=== PATIENT | female | born 1985 | race Caucasian/White ===

== ENCOUNTER 2022-11-15 12:16 | Emergency (ER) | payer BC, SELFPAY ==
[2022-11-15 12:30] VITALS: BP 137/78; PULSE 101; RESP 18; TEMP 36.7; O2SAT 97; BMI 35.1
--- NOTE | 2022-11-15 12:35 | ED_ITS ---
HPI - General Adult General Time Seen by Provider: 12:35 Date Seen: 11/15/22 Chief complaint: Vaginal Bleeding Stated complaint: Severe period bleeding/cramping Time Seen by Provider: 11/15/22 12:20 Source: patient and RN notes reviewed Mode of arrival: ambulatory Limitations: no limitations History of Present Illness HPI narrative: This 37-year-old female is coming in with heavy menstrual bleeding, cramping. She had a Mirena IUD taken out on Sunday. With her Mirena IUD, it had been in about 1 year, was placed in [place]. She was pursuing a diagnosis of en dometriosis and requesting hysterectomy. She is subsequently moved from her job in [place] to here. She does have a follow-up with OB [facility]ne through [facility] next week. She has not had any imaging. She is bleeding enough that she has felt lightheaded. She states yesterday she felt a little chest pain as well as the day before. She has had a gastric sleeve before and thus avoids oral NSAIDs. She has not taken anything like Tylenol for her cramping. She is here to be further evaluated. With her Mirena IUD, had initial bleeding and spotting for the 1st few months. While the Mirena IUD was in, did have a monthly light menstrual cycle where was more brown spotting. Related Data Home Medications Medication Instructions Recorded Confirmed fluticasone propionate 50 1 spray intranasal DAILY PRN 11/15/22 11/15/22 mcg/actuation nasal spray,suspension (Children's Flonase Allergy Relief) venlafaxine 37.5 mg 37.5 mg PO BID 11/15/22 11/15/22 capsule,extended release 24 hr Allergies Allergy/AdvReac Type Severity Reaction Status Date / Time NSAIDS (Non-Steroidal AdvReac Verified 11/15/22 12:28 Anti-Inflamma Review of Systems Narrative: As per HPI. PFSH PFSH Social History Smoking Status: Never smoker Non-prescribed substance use: denies use Exam Const: Vital Signs, click to edit/add: Vital Signs - 24 hr 11/15/22 14:40 Pulse Rate [Right Pulse Oximeter] 98 Respiratory Rate 16 Blood Pressure [Ri ght Upper Arm] 130/78 Pulse Oximetry 97 Oxygen Delivery Me thod Room Air This 37-year-old female is alert, interactive, no apparent distress. Sclera clear, symmetrical facial function, speaking in complete sentences. Neck supple, no thyromegaly masses or nodules noted. CV regular rate and rhythm no murmur. Lungs are clear with good air entry, no wheezing or crackles. Abdomen is soft, nontender, nondistended, no organomegaly palpable. Pelvic exam deferred at this point. Patient was ambulatory into the ED of her own accord. Documenting provider has reviewed patient's vital signs: yes Course Course ED Course: We will stab lotion IV, give her some normal saline, did discuss Toradol which she can use IV. She would like this. Will order 15 mg IV Toradol. We will get basic labs including CBC, extremely unlikely to be but will confirm negative hCG status. Did discuss thyroid screening which she would like to pursue. Will also get a pelvic ultrasound to look at architecture of the uterus. Need to ensure no significant anemia from acute blood loss. Likely discharge to home with outpatient follow-up with OB. Reevaluation(s) Time of Reevaluation #1: 14:45 Reevaluation #1: Patient receiving her IV fluids. Toradol has helped some. Reviewed with her her hemoglobin is stable at 12. Still awaiting the over-read of her pelvic ultrasound but the prelim report per senior rd engineer is no significant acute pathology. status is confirmed negative. TSH is still pending at this time. Vital Signs Vital signs: Initial Vital Signs Temperature 98.0 F 11/15/22 12:30 Temperature Source Temporal Artery Scan 11/15/22 12:30 Pulse Rate 101 H 11/15/22 12:30 Respiratory Rate 18 11/15/22 12:30 Blood Pressure 137/78 11/15/22 12:30 Blood Pressure Mean 97 11/15/22 12:30 Blood Pressure Position Sitting 11/15/22 12:30 Pulse Oximetry 97 11/15/22 12:30 Oxygen Delivery Method Room Air 11/15/22 12:30 Vital Signs Temperature 98.0 F 11/15/22 12:30 Pulse Rate 101 H 11/15/22 12:30 Respiratory Rate 18 11/15/22 12:30 Blood Pressure 137/78 11/15/22 12:30 Pulse Oximetry 97 11/15/22 12:30 Oxygen Delivery Method Room Air 11/15/22 12:30 Temperature 98.0 F 11/15/22 12:30 Pulse Rate 98 11/15/22 14:40 Respiratory Rate 16 11/15/22 14:40 Blood Pressure 130/78 11/15/22 14:40 Pulse Oximetry 97 11/15/22 14:40 Oxygen Delivery Method Room Air 11/15/22 14:40 Medical Decision Making Lab Data Lab results reviewed: Yes I reviewed the patient's lab results Labs: Lab Results 11/15/22 11/15/22 Range/Units 13:06 13:10 WBC 7.88 (4.50-11.00) K/uL RBC 4.56 (4.00-5.20) m/uL Hgb 12.0 (12.0-16.0) gm/dL Hct 38.2 (33.0-51.0) % MCV 84 (80-100) fL MCH 26 (26-34) pg MCHC 31 L (32-36) gm/dL RDW Coeff of [place] 14.2 (11.5-15.5) % Plt Count 380 (140-440) K/uL Neut % (Auto) 64.1 (42.0-72.0) % Lymph % (Auto) 30.6 (20-44) % [place] % (Auto) 4.3 (0.0-11.0) % Eos % (Auto) 0.6 (0.0-7.0) % Baso % (Auto) 0.3 (0.0-3.0) % Neut # (Auto) 5.05 (1.7-7.0) K/uL Lymph # (Auto) 2.41 (0.90-2.90) K/uL [place] # (Auto) 0.30 (0.00-0.90) K/UL Eos # (Auto) 0.05 (0.00-0.50) K/uL Baso # (Auto) 0.02 (0.00-0.30) K/uL Abs Immat Gran (auto) 0.01 (0.00-0.30) K/uL Imm/Tot Granulo (auto) 0.1 % Sodium 138 (135-149) mmol/L Potassium 3.6 (3.6-5.1) mmol/L Chloride 102 (96-114) mmol/L Carbon Dioxide 25 (20-32) mmol/L Anion Gap 11 (7-15) mEq/L BUN 10 (5-24) mg/dL Creatinine 0.6 (0.5-1.5) mg/dL Estimated Creat Clear 122.42 Estimated GFR 117 ml/min Glucose 103 (60-115) mg/dL Calcium 8.9 (8.4-10.6) mg/dL Troponin I < 0.01 L (0.01-0.04) ng/mL TSH 2.010 (0.270-4.200) uIU/mL HCG, Qual Negative (Negative) Lab Acknowledgement Test Added Imaging Data US pelvis: Attestation: I have reviewed the pertinent imaging results. Radiologist's impression: Patient: EMMANUEL MOSHER Facility:?[facility] Patient ID:?[id number] Site Patient ID:?[id number]. Site :?[id number] Study:?US Pelvis PELVIS TA & TV-11/15/2022 2:50:41 PM Ordering Physician:?Ned Garrido Final Report: INDICATION: Menometrorrhagia. Recent IUD removal. TECHNIQUE: Ultrasound pelvis transabdominal and transvaginal for better assessment or to better visualize the endometrium. Real-time sonographic images with spectral and color Doppler imaging of the ovaries were obtained. COMPARISON: None. FINDINGS: Uterus: 9.4 x 5.0 x 6.1 cm. Scarring in the anterior aspect of the lower uterine segment from prior section. Heterogeneous myometrium without discrete mass to suggest uterine fibroid. Endometrium: Transvaginal imaging was performed to better evaluate the endometrium. Endometrial thickness measures 7 mm. No sign of endometrial mass. Trace fluid within the endometrial canal. Right ovary 2.8 x 1.8 cm (additional measurement not included). Left ovary 2.9 x 1.2 x 1.6 cm. No ovarian or adnexal masses. Normal blood flow is demonstrated in both ovaries. Cul-de-sac: No significant free fluid. IMPRESSION: 1. Heterogeneous appearance of the myometrium without focal uterine abnormality. 2. Unremarkable sonographic appearance of the ovaries. Dictated by Lay Anand MD @ 11/15/2022 3:15:50 PM (Electronic Signature) ECG Data Attestation: I personally reviewed and interpreted this ECG as follows: (Sinus rhythm, 99 beats per minute. No ischemic change. QT corrected 469 milliseconds.) Prior ECG tracings: not available for review Discharge Plan Discharge Clinical Impression: Menorrhagia Patient Disposition: Home, Self-Care Condition: Stable Instructions: Abnormal (Dysfunctional) Uterine Bleeding (ED), Menorrhagia (ED) Additional Instructions: The bleeding very well may be in reaction to the IUD removal. The thyroid did subsequently come back normal (TSH). Need to take the copy of the ultrasound to your follow-up appointment with OB Gyne next week. Continue to observe symptoms, if bleeding is worsening or you are becoming more symptomatic, please seek re-evaluation. Prescriptions: No Action venlafaxine 37.5 mg capsule,extended release 24hr 37.5 mg PO BID fluticasone propionate [Children's Flonase Allergy Rlf] 50 mcg/actuation spray,suspension 1 spray intranasal DAILY PRN Rx Instructions: administer into each nostril Follow Up/Referrals: Provider,Not a Local [Primary Care Provider] - Stand Alone Forms: [employer] Info Instructions
--- NOTE | 2022-11-15 13:00 | CRLHL7_ITS ---
For Patients: As a result of the Century Cures Act, medical imaging exams and procedure reports are released immediately into your electronic medical record. You may view this report before your referring provider. If you have questions, please contact your health care provider. INDICATION: Menometrorrhagia. Recent IUD removal. TECHNIQUE: Ultrasound pelvis transabdominal and transvaginal for better assessment or to better visualize the endometrium. Real-time sonographic images with spectral and color Doppler imaging of the ovaries were obtained. COMPARISON: None. FINDINGS: Uterus: 9.4 x 5.0 x 6.1 cm. Scarring in the anterior aspect of the lower uterine segment from prior section. Heterogeneous myometrium without discrete mass to suggest uterine fibroid. Endometrium: Transvaginal imaging was performed to better evaluate the endometrium. Endometrial thickness measures 7 mm. No sign of endometrial mass. Trace fluid within the endometrial canal. Right ovary 2.8 x 1.8 cm (additional measurement not included). Left ovary 2.9 x 1.2 x 1.6 cm. No ovarian or adnexal masses. Normal blood flow is demonstrated in both ovaries. Cul-de-sac: No significant free fluid. IMPRESSION: 1. Heterogeneous appearance of the myometrium without focal uterine abnormality. 2. Unremarkable sonographic appearance of the ovaries. Dictated by Lay Anand MD @ 11/15/2022 3:15:50 PM (Electronically Signed)
[2022-11-15 13:26] LABS: Basophils Absolute Auto 0.02 K/uL (0.00-0.30); Basophils Percent Auto 0.3 % (0.0-3.0); Eosinophils Absolute Auto 0.05 K/uL (0.00-0.50); Eosinophils Percent Auto 0.6 % (0.0-7.0); Hematocrit 38.2 % (33.0-51.0); Immature Granulocytes Abs Auto 0.01 K/uL (0.00-0.30); Immature Granulocytes Pct Auto 0.1 %; Lymphocytes Absolute Auto 2.41 K/uL (0.90-2.90); Lymphocytes Percent Auto 30.6 % (20-44); Mean Corpuscular HGB Conc 31 gm/dL (32-36); Mean Corpuscular Hemoglobin 26 pg (26-34); Mean Corpuscular Volume 84 fL (80-100); Monocytes Percent Auto 4.3 % (0.0-11.0); Neutrophils Absolute Auto 5.05 K/uL (1.7-7.0); Neutrophils Percent Auto 64.1 % (42.0-72.0); Platelet Count* 380 K/uL (140-440); RDW Coefficient of Variation % 14.2 % (11.5-15.5); Red Blood Count 4.56 m/uL (4.00-5.20); White Blood Count* 7.88 K/uL (4.50-11.00)
[2022-11-15] MEDS: KETOROLAC 15 MG/ML inj IVP (13:36)
[2022-11-15] MEDS: 0.9 % SODIUM CHLORIDE 1000 ml 1,000 ML IV (13:37)
[2022-11-15 13:42] LABS: Chloride* 102 mmol/L (96-114); Potassium* 3.6 mmol/L (3.6-5.1); Sodium* 138 mmol/L (135-149)
[2022-11-15 13:45] LABS: Anion Gap 11 mEq/L (7-15); Carbon Dioxide* 25 mmol/L (20-32); Creatinine* 0.6 mg/dL (0.5-1.5); Est. Creatinine Clearance* 122.42; Estimated Glomerular Filt Rate 117 ml/min
[2022-11-15 13:46] LABS: Blood Urea Nitrogen* 10 mg/dL (5-24); Calcium* 8.9 mg/dL (8.4-10.6); Glucose* 103 mg/dL (60-115)
[2022-11-15 13:47] LABS: Slide Review Reflex No
[2022-11-15 13:55] LABS: HCG Qualitative Serum* Negative (Negative)
[2022-11-15 14:01] LABS: Troponin I* < 0.01 ng/mL (0.01-0.04)
[2022-11-15 14:40] VITALS: BP 130/78; PULSE 98; RESP 16; O2SAT 97
== END 2022-11-15 15:29 | disposition home or self-care (01) ==
PROVIDERS: Emergency Provider Family Medicine
DX: N92.0 Excessive and frequent menstruation with regular cycle (principal)
CPT/HCPCS: 36415; 76830; 76856; 80048; 84443; 84484; 84703; 85025; 93005; 93976; 94761; 96361; 96374; 99284; 99285; J1885; J7030

== ENCOUNTER 2023-06-12 09:36 | Day surgery (SDC) | payer BC, SELFPAY ==
[2023-06-12] VITALS (18 sets, daily range): BP systolic 92–113; BP diastolic 49–72; PULSE 66–99; RESP 12–18; TEMP 35.6–36.9; O2SAT 94–100; BMI 35.6
--- OUTSIDE RECORDS SUMMARY | 2023-06-12 09:39 | XMS_ITS | Clinical Summary ---
Author Name Unknown Organization [facility] Address [address] [place] [address] Care Team Providers Care Campus Receptionist Name Role Phone Cornelia Larkin PA-C Primary Care Provider Source Comments You are receiving this document as you are listed as the primary care provider,follow-up provider, or the patient has been referred to you for consultation.This is in compliance with the Medicare and[facility] Hospital[facility] EHR Incentive Program,which states Providers who transition their patient to another setting of careor provider of care or refers their patient to another provider of care shouldprovide summary care record for each transition of care or referral. [facility] Allergies Active Allergy Reactions Criticality Noted Date Comments Nsaids Other, see comments 12/04/2018 H/o gastric sleeve Medications Medication Sig Dispensed Refills Start Date End Date Status fluticasone propionate (FLONASE) 50 MCG/ACT nasal solution 1 Swisher by Nasal route. Active venlafaxine (EFFEXORXR) 75 MG 24 hour release capsuleIndications: Anxiety (HRC),Moderate episode of recurrent major depressive disorder (HRC) Take 1 Capsule (75 mg) by mouth daily. 90 Capsule 3 12/01/2022 12/01/2023 Active Active Problems Problem Noted Date Diagnosed Date Attention deficit hyperactiv ity disorder (ADHD), predominantly inattentive type 05/04/2022 Anxiety 05/04/2022 Moderate episode of recurrent major depressive d isorder 05/04/2022 H/O gastric bypass 12/04/2018 Overview: S/p gastric sleeve, lost approximately 110 lbs Depression 12/04/2018 Pre-eclampsia 12/04/2018 Overview: Borderline pre-eclampsia with first Immunizations Name Administration Dates Next Due Flu Vac (3+ yrs) 11/26/2012,10/27/2009 Flu Vac Preserv Free (3+yrs) 12/08/2011,11/24/19 11 Fluzone Qiv Multidose Vial 0 .25 (6-35 Mos) 11/21/2018 Influenza IIV4 (Quadrivalent ) 0.5mL (67125) 11/30/2021,12/05/2019,11/21/2018, 017,11/30/2014,11/03/2013 Pfizer Monovalent 12+ Purple Top 01/10/2021,05/0 02/2020,05/22/2020 Tdap 06/13/2015, 6,10/23/2013, 011 Family History Medical History Relation Name Comments Hyperlipidemia Father Hypertension Father Depression Mother Depression Maternal Grandmother Cancer, Endometrial Other maternal great grandmother Cancer, Bladder Paternal Grandfather Cystic Fibrosis Paternal Grandfather Depression Sister Cancer, Breast Negative Family History Cancer, Colon Negative Family History Diabetes, Type II Negative Family History Stroke Negative Family History Thromboembolic Disease Negative Family History Relation Name Status Comments Father Mother Maternal Grandmother Other Paternal Grandfather Sister Social History Tobacco Use Types Packs/Day Years Used Date Smoking Tobacco: Former Cigarettes 1 9.5 1 03/1995 - 06/2005 Smokeless Tobacco: Former Alcohol Use Standard Drinks/Week Comments Not Currently 0 (1 standard drink = 0.6 oz pur e alcohol) PHQ-2 Answer Date Recorded PHQ-2 Score 5 09/12/2022 Sex and Gender Information Value Date Recorded Sex Assigned at Female 10/13/2020 10:30 AM CDT Gender Identity Female 10/13/2020 10:30 AM CDT Sexual Orientation Not on file Last Filed Vital Signs Vital Sign Reading Time Taken Comments Blood Pressure 101/44 11/10/2022 12:03 PM CDT Pulse 101 11/10/2022 12:03 PM CDT Temperature 36.8 ??C (98.2 ??F) 04/27/2021 9:46 AM CD T pt reported Respiratory Rate - - Oxygen Saturation - - Inhaled Oxygen Concentration - - Weight 101.6 kg (224 lb) 11/10/2022 12:03 PM CDT Height 170.2 cm (5' 7) 04/27/2021 9:46 AM CDT p t reported Body Mass Index 35.08 04/27/2021 9:46 AM CDT Plan of Treatment Health Maintenance Due Date Last Done Comments Hep C Screening (Preventive Services) 1985 HepB (1) 2002 COVID-19 Vaccine ( season) 2022 01/10/2021, 06/12/2020, 05/22/2020 Influenza (#1) 2022 11/30/2021, 11/13, 11/21/2018, Additional history exists Adult Preventive Visit 10/15/2022 10/15/2020, 2018 DTaP/Tdap/Td (5 - Tdap) 06/12/2025 06/13/19 16, 05/20/2015, 10/23/2013, Additional history exists Cervical Cancer Screening 10/15/20252020, 11/12/2016 (Completed) Zoster/Shingles (1 of 2) 2033 HIV Screening (Preventive Services) Completed 01/13/2016 (Completed) HPV Vaccine Aged Out No longer eligi ble based on patient's age to complete this topic HepA Aged Out No longer eligi ble based on patient's age to complete this topic Hib Aged Out No longer eligi ble based on patient's age to complete this topic IPV (Polio) Aged Out No longer eligi ble based on patient's age to complete this topic MCV4 Aged Out No longer eligi ble based on patient's age to complete this topic Pneumococcal Aged Out No longer eligi ble based on patient's age to complete this topic Procedures Procedure Name Priority Date/Time Associated Diagnosis Comments PAP TEST Routine 10/15/2020 1:27 PM CDT Screening for malignant neoplasm of cervix from Last 3 Months or Most Recently Relevant to Health Maintenance Results * PAP Test (10/15/2020 1:27 PM CDT) Case Report Pap ? Case: [id number] ? Authorizing Provider: ??Jennifer Johnson L, DNP, CASING PULLER, ??Collected: ? 10/15/2020 1327 ? PHOTONICS ENGINEER ? Ordering Location: ? [facility] ??Received: ?10/15/2020 1420 ? Practice ? First Screen: ?Naeem, Gisele N, CT (ASCP) ? Specimen: ?Pap Test, Routine, Cervix/Endocervix ? 10/27/2020 7:59 AM [facility] Pap Specimen Adequacy Satisfactory for evaluation, endocervical/reynaga sformation zone component absent. 10/27/2020 7:59 AM [facility] Pap Interpretation Negative for intraepithelial lesion or malignancy (NILM). 10/27/2020 7:59 AM [facility] Pap Disclaimer The Pap test is a screening test designed to aid in the detection of cervical cancer and its precursor lesions. It is not a diagnostic procedure and should not be used as the sole means of detecting cervical cancer. Both false-positive and false-negative results may occur. 10/27/2020 7:59 AM [facility] Gross Description The specimen is received in SurePath fixative and properly labeled. 1 Pap-stained SurePath slide is prepared. 10/27/2020 7:59 AM [facility] Embedded Images 7:59 AM [facility] Other Specimen Type ENTIRE ENDOCERVIX / Unknown 10/15/2020 1:27 PM CDT 10/15/2020 2:20 PM CDT Comment:LMP: No LMP recorded . Jennifer Johnson DNP, CASING PULLER, PHOTONICS ENGINEER LAB PATHOLOG Y Performing Organization Address City/State/[facility] Co de Phone Number [address] [address], [facility] [phone] from Last 3 Months or Most Recently Relevant to Health Maintenance Care Teams Campus Receptionist Relationship Specialty Start Date End Date Cornelia Larkin PA-C [address] [place] [address] PCP - General Physician [place] Alarm Operator 04/06/22
[2023-06-12 10:23] LABS: Ur HCG Qualitative* Negative (Negative)
[2023-06-12 10:24] LABS: Hemoglobin* 12.4 gm/dL (12.0-16.0)
[2023-06-12] MEDS: LACTATED RINGERS 1000 ML 1,000 ML 100 ML IV ×3 (10:30→15:44)
[2023-06-12] MEDS: SODIUM CHLORIDE 0.9 % (FLUSH) 10 ML SYRINGE IVF (10:30)
[2023-06-12 10:54] LABS: Creatinine* 0.6 mg/dL (0.5-1.5); Estimated Glomerular Filt Rate 116 ml/min
--- NOTE | 2023-06-12 11:30 | W.PM.H&PU ---
History & Physical Update History & Physical Update H&P Reviewed and patient assessed: No changes noted H&P Updates: Chelsea is a 38yo seen in preop prior to planned total laparoscopic hysterectomy, bilateral salpingectomy, cystoscopy in proceed as indicated in the setting of abnormal uterine bleeding with suspicion for endometriosis. She is feeling well today, no interval update to her health history. We reviewed her planned surgery in detail. We discussed risks of surgery, including conversion to open if it is not safe to proceed laparoscopically (for which she is at increased risk with 2 prior C-sections and possible endometriosis), bleeding, infection, damage to surrounding structures (bowel, bladder, ureters, blood vessels) and complications of surgery/anesthesia including VTE, heart attack, stroke or . All questions answered. She affirmed her desire to proceed with the above surgery. Preop labs reviewed,Hgb 12.4, Cr 0.6 and negative UPT.
--- NOTE | 2023-06-12 11:53 | P.GYNPRC_ITS ---
Procedure Note Time Seen by Provider: 15:08 Date of procedure: 06/12/23 Will [facility] bill your pro fee for this procedure?: Yes Pre-op diagnosis: Abnormal Uterine Bleeding Dysmenorrhea Endometriosis Post-op diagnosis: Same as above Procedure: Total laparoscopic hysterectomy Bilateral salpingectomy Diagnostic cystoscopy Anesthesia: GETA Complications: None Surgeon: Lc Marrero MD Mammography Technologist: Anita Valerio Estimated blood loss (mL): 150 Urine Output (mL): 350 Pathology: specimen obtained, sent to pathology Condition: stable Disposition: observation Findings: Adhesion between the omentum and anterior abdominal wall Unremarkable uterus bilateral fallopian tubes and ovaries Scattered suspected endometriosis lesions Unremarkable diagnostic cystoscopy Procedure Description: Patient was taken to the operating room with IV running. She received cefazolin in preoperative prophylaxis. She was positioned in dorsal lithotomy position with her legs fully supported in Yellofin stirrups. General anesthesia was administered. She was prepped and draped in the usual sterile fashion. Pelvic exam under anesthesia was performed for the above-noted findings. Speculum was inserted. Cervix visualized and grasped along its anterior lip with a single-tooth tenaculum. Cervix was dilated with Hegar dilators to accommodate the VCare uterine manipulator. A large-sized colpotomizer cup was selected. The tip of the uterine manipulator was inserted through the cervix into the uterine cavity and the balloon was inflated. The speculum was removed. The colpotomy cup was advanced, surrounding the cervix, and the proximal occluder was moved up along the shaft of the VCare and fixed in place. Sahni catheter was placed. Patient's legs were then placed in neutral position. Attention was turned to patient's abdomen. Space between umbilicus and ASIS was shortened, secondary to prior abdominoplasty. The supraumbilical area was infiltrated with a small amount of Marcaine. A 5 mm supraumbilical incision was made with a scalpel and carried down to the underlying layer of fascia with the hemostat. 5 mm camera was placed within the 5 mm Fios Kii trocar, and advanced under direct visualization through the anterior abdominal wall into the peritoneal cavity, while tenting up the anterior abdominal wall. The trocar was removed. The balloon was inflated, holding the port in place. Pneumoperitoneum was achieved. Survey of the abdomen and pelvis revealed the above-noted findings. Trendelenburg position was requested. Anesthesia provided noted slight movement of the patient despite pink pad and chest strap - where we paused and put the OR table back into neutral position. Her chest strap was tightened and neutral positioning was ensured. Upon resumption of Trendelenburg, proper positioning was maintained and reassessed throughout the case. Two additional port sites were created in the bilateral lower quadrants, 2cm superior and medial to the ASIS. On the right, a 5mm incision was made and 5mm port was placed under direct visualization without complication. On the left, a 11mm incision was made and 10mm port was inserted under direct visualization without complication. Attention was first turned to the left fallopian tube, which was divided from the mesosalpinx, using the Ligasure bipolar cautery device, proceeding laterally to medially, and the tube was amputated at the left uterine cornua. This was removed through the port site and sent to pathology. This procedure was repeated on the patient's right side, and the right fallopian tube was also amputated at the cornua and removed from the patient's abdomen. This was also sent to pathology for further analysis. The left round ligament was cauterized and transected with the Ligasure device. The utero-ovarian ligament was cauterized and transected, and the remnants of the right broad ligament were cauterized and transected between these two structures. The bladder flap was created on the patient's left side, moving l aterally to medially. The left uterine artery was serially cauterized and transected with the Ligasure device. Using the colpotomizer cup as a guide, the peritoneum and underlying stroma was dissected off the anticipated site of colpotomy over the posterior vaginal fornix. Attention was then turned to the right side of the uterus, where the right round ligament was cauterized and transected with Ligasure. The right utero-ovarian ligament was cauterized and transected, and the remnants of the right round ligament were cauterized and transected between these two structures. The bladder flap was created on the patient's right side, and dissection was carried laterally to medially, meeting the dissection where it had left off from the patient's right side. The right uterine artery was serially cauterized and transected with the Ligasure device. The bladder reflection was moved well below the colpotomizer cup anteriorly. The vaginal fornix was then entered anteriorly with the [place] lab cautery device, using the colpotomizer cup as a guide. This device was moved along the circumference of the colpotomizer cup, until the uterus and cervix were freed from their attachments to the pelvis. The uterus was pulled into the patient's vagina and removed, sent to pathology. Pneumoperitoneum was released, ports in place. Attention was then turned vaginally, where patient's legs were placed back in lithotomy position. A weighted speculum and raji retractor were utilized to visualize the vaginal cuff. The right and left corners of the cuff were grasped with Nixon clamps. I started with the left vaginal cuff corner, where an interrupted stitch was applied making sure to grasp the uterosacral ligament. This was tied and tagged. An additional interrupted suture was applied me dically. The same process was completed on the right, making sure to grasp the uterosacral ligament for support. The middle of the vaginal cuff was closed with a [id number] suture. Excellent hemostasis was noted. The vaginal cuff was noted to be intact visually and with palpation. The Sahni catheter was removed from the bladder, and the cystoscope was assembled with saline inflow, outflow, and light cord in place. The patient was given IV methylene blue prior to the cystoscopy. Cystoscope was advanced through the urethra into the bladder, and survey of the mucosa revealed a normal appearance. The bladder dome was intact. Bilateral ureteral jets were noted. Cystoscope was removed and Sahni catheter replaced. Patient's legs were again placed in neutral position. Insufflator was reattached to the port and pneumoperitoneum again achieved. Survey of the pelvis revealed oozing along the posterior vaginal cuff, addressed with bipolar and monopolar cautery as needed. The pelvis was copiously irrigated and suction, excellent hemostasis noted. Ector was applied across the vaginal cuff to reinforce hemostasis. The 11 mm Fios Kii port in the left lower quadrant was removed after balloon on the port was deflated. The Shayne-Gomez laparoscopic closure device was inserted through this port. With the help of this device, the fascia was closed with a single suture of 0-Vicryl. Procedure was deemed complete. The balloons of all remaining port sites were deflated, and all ports were removed after pneumoperitoneum was released. The skin of each port site was closed in a subcuticular fashion with 4 0 Monocryl. Surgical glue was applied above this. Patient tolerated procedure well and was taken to recovery area in stable condition. Surgical debrief completed. EBL 150cc, UOP 350cc, specimen includes uterus, cervix, bilateral fallopian tubes.
[2023-06-12] MEDS: CEFAZOLIN 2 GM INJ IVP (12:02)
[2023-06-12] MEDS: BUPIVACAINE 0.25% 30 ML INJECTION ×2 (13:15→14:40)
[2023-06-12] MEDS: METHYLENE BLUE 1 % 10 ml 100 MG INJECTION (13:25)
--- NOTE | 2023-06-12 13:38 | P.NB_ITS ---
Nerve Block Nerve Block Time Seen by Provider: 12:02 Date Seen: 06/12/23 Type of block requested by surgeon for post-operative analgesia: TAP Side: bilateral Time out performed: Yes Verification of patient name: Yes Verification of date of : Yes Site marking: site marked Name of person performing procedure: [place] Continuous monitoring Was continuous monitoring of O2 sat, B/P, sign designer, recorded every 15 minutes?: Yes Procedure Checklist: sterile prep, needles and gloves Ultrasound guided. Images saved: Yes Medications given in 5ml increments after negative aspiration: Marcaine %: 0.25 mL: 30 Needle gauge: 20 and Exparel mL: 10 Patient tolerated procedure well: Yes Additional comments: Needle noted between internal oblique and transversus abdominus. Local spread visualized Block Charges Block Charge (with Pro Fee): TAP Bilateral Use of Ultrasound Machine for Block: Yes- US Guidance/pain block
--- NOTE | 2023-06-12 13:38 | W.ANESCHARGE ---
Anesthesia Charges Start Date/Time Anesthesia Start Date: 06/12/23 Anesthesia Start Time: 11:51 Stop Date/Time Anesthesia Stop Date: 06/12/23 Anesthesia Stop Time: 15:01
--- NOTE | 2023-06-12 15:05 | W.ANESCHARGE ---
Anesthesia Charges Start Date/Time Anesthesia Start Date: 06/12/23 Anesthesia Start Time: 11:51 Stop Date/Time Anesthesia Stop Date: 06/12/23 Anesthesia Stop Time: 15:01
[2023-06-12] MEDS: ACETAMINOPHEN 325 MG TABLET 650 MG PO (16:24)
[2023-06-12] MEDS: OXYCODONE 5 MG TABLET PO ×2 (18:39→22:31)
--- NOTE | 2023-06-12 18:43 | PC.NURSE ---
End of Shift: Patient pleasant and cooperative, A&O. VSS, SpO2 maintained above 90% on RA. Lung sounds CTA. Patient reports pain on abdomen rating from 3-4 out of 10, managed with Tylenol and Oxycodone. Lap sites are open to air and no drainage. Sahni catheter with blue output from dye. Tolerating regular diet, denies nausea.
[2023-06-12] MEDS: KETOROLAC 30 MG/ML inj IVP (20:50)
[2023-06-13 03:00] VITALS: BP 120/70; PULSE 67; RESP 18; TEMP 36.6; O2SAT 95
[2023-06-13] MEDS: OXYCODONE 5 MG TABLET PO ×2 (03:14→08:18)
[2023-06-13] MEDS: KETOROLAC 30 MG/ML inj IVP (03:14)
--- NOTE | 2023-06-13 06:43 | PC.NURSE ---
19-07: pleasant and cooperative. indep in room. rating pain 1-5/10, see eMAR. VSS. lap sites intact. chapa removed, tip intact.
[2023-06-13 06:51] LABS: Hemoglobin* 10.6 gm/dL (12.0-16.0)
--- NOTE | 2023-06-13 07:42 | P.DS_ITS ---
DS: Providers Provider Time Seen by Provider: 07:20 Date Seen: 06/13/23 Primary care physician: Not a Local Provider Attending Physician on discharge: Tabitha Marrero MD SFDC DEVELOPER-Discharge Summary Hospital Course Hospital Course Narrative: Patient is a 38 year old admitted on her 06/12/23 for postoperative care in the setting of total laparoscopic hysterectomy, bilateral salpingectomy and diagnostic cystoscopy for abnormal uterine bleeding and endometriosis. Indication for surgery: AUB, endometriosis with failed medical management. Intraoperative findings were notable for adhesions of the omentum to the anterior abdominal wall and mild endometriosis. She had an uncomplicated surgery. Postoperative course has been uneventful. Vitals have been stable. She has remained afebrile. Today, on postoperative day 1, she reports the pain is well controlled. She has been maintained on a regimen of Tylenol, Toradol and oxycodone as needed. She is unable to take ibuprofen at home due to history of gastric sleeve. She has been able to ambulate Without difficulty. She is tolerating regular diet with out nausea or vomiting. She has not yet passed gas, no bowel movement. Sahni catheter has been removed, and she is voiding without difficulty. Minimal vaginal bleeding. UOP adequate at 1L in the last 8 hours. Hgb 10.8 from 12.4 pre-op. Time Spent with Patient Time attestation: Total time spent providing and/or coordinating discharge services: SFDC DEVELOPER - Exam Physical Exam: Vital signs: Temp Pulse Resp BP Pulse Ox O2 Del Method 97.8 F 67 18 120/70 95 Room Air 06/13/23 03:00 06/13/23 03:00 06/13/23 03:00 06/13/23 03:00 06/13/23 03:00 06/13/23 03:00 Narrative: General: Alert and oriented, no acute distress Psych: Appropriate mood and affect Abdomen: Soft, nondistended. Nontender in the upper quadrant, though there is tenderness in the lower abdomen consistent with postoperative state. No rebound or guarding. Incisions are all intact, no peripheral erythema or ecchymosis. Superficial surgical glue on. Extremities: No calf erythema or tenderness. Strength to hip flexion, knee extension, dorsi and plantar flexion intact in equal bilaterally. SFDC DEVELOPER - DS: Data Data Completed and Pending Labs on day of discharge: Labs from last 24 hours 06/13/23 06/12/23 06/12/23 06:31 Unknown 10:14 Hgb 10.6 L 12.4 Creatinine 0.6 Estimated Creat Clear 121.20 Estimated GFR 116 Urine HCG, Qual Negative Blood Type A Positive Antibody Screen NEGATIVE Procedures Procedures: Procedures Operation Date: 06/12/23 10:45 Actual Procedure Side Surgeon p Total Laparoscopic Hysterectomy, Bilateral Salpingectomy, Diagnostic Cystoscopy Bilateral Tabitha Marrero MD Discharge Plan Discharge Disposition: Home, Self-Care Discharging Surgeon: Tabitha Marrero Follow-Up Appointment: 2 week and 6 week visits at [facility] Prescriptions: New oxycodone 5 mg capsule 5 mg PO Q6H PRN (Reason: pain) Qty: 20 0RF Continued venlafaxine 75 mg capsule,extended release 24hr 75 mg PO DAILY fluticasone propionate [Children's Flonase Allergy Rlf] 50 mcg/actuation sp ray,suspension 1 spray intranasal DAILY PRN Rx Instructions: administer into each nostril Discontinued norethindrone acetate 5 mg tablet 5 mg PO QDAY Qty: 30 3RF Activity Level: Activity as Tolerated Activity Detail: No lifting more than 15 lb Discharge Diet: Regular Patient Instructions: Oxycodone, Rapid Release (By mouth), Laparoscopic Hysterectomy (DC) Additional Instructions: Lifting restrictions: Please do not lift more than 15lbs for 6 weeks Sexual restriction: Pelvic rest for 2 weeks Pain control: Over the counter Acetaminophen 1000 mg by mouth every six hours on a full stomach for pain as needed Oxycodone 5mg every 6 hours as needed for breakthrough pain (20 tablets provided as patient cannot take p.o. NSAIDs) Please call with: - Heavy vaginal bleeding - Increasing or severe abdominal pain - Fevers/chills - Inability to tolerate solid/liquids by mouth, recurrent nausea/vomiting - Incision redness/drainage - Signs or symptoms of a blood clot - calf pain, redness, swelling, chest pain or shortness of breath Forms: Work/School Release Follow-up: Tabitha Marrero MD [Staff Physician] - 06/27/23 8:45 am ([facility] for 2 wk follow up July 25 at 08:45 AM - [facility] and [facility] for 6 wk follow up.) Provider,Not a Local [Primary Care Provider] - Discharge Orders: Discharge Order (Routine); Ordered 06/13/23 Ordered By: Tabitha Marrero Discharge Potential: Good
[2023-06-13 07:50] VITALS: BP 126/79; PULSE 72; RESP 16; TEMP 36.2; O2SAT 99
[2023-06-13] MEDS: ACETAMINOPHEN 325 MG TABLET 650 MG PO (08:18)
--- NOTE | 2023-06-13 09:46 | PC.NURSE ---
discharge. pt has been very pleasant. pt is alert x4., pain abd is 4-10 she got po pain meds with relief. managed with Tylenol and Oxycodone. Lap sites are open to air and no drainage. Kaitlyn was d/c this am. Tolerating regular diet, denies nausea. went over discharge packet. went over medications, appointments and instruction and education, pt went over and signed personal belonging sheet., was here with coffee. pt SL was d/c intact. she got a w/c ride to car. with all belongs and paperwork
== END 2023-06-13 09:40 | disposition home or self-care (01) ==
LOC: OR 09:37 → MEDSURG 09:40
PROVIDERS: Visit Provider Obstetrics & Gynecology
PROC: 0UT94ZZ Resection of Uterus, Percutaneous Endoscopic Approach (ICD-10-PCS; CPT 58571; principal; 2023-06-12 10:45)
DX: N93.8 Other specified abnormal uterine and vaginal bleeding (principal); N94.6 Dysmenorrhea, unspecified; N80.9 Endometriosis, unspecified; K66.0 Peritoneal adhesions (postprocedural) (postinfection); G89.18 Other acute postprocedural pain
CPT/HCPCS: 58571; 00840; 36415; 64488; 76942; 81025; 82565; 85018; 86850; 86900; 86901; 88307; A9270; C9290; J0665; J0690; J1100; J1200; J1630; J1885; J2250; J2371; J2405; J2704; J2710; J3010; J3490; J7120

== ENCOUNTER 2023-09-14 13:54 | Outpatient (CLI) | payer BC, SELFPAY ==
--- OUTSIDE RECORDS SUMMARY | 2023-09-14 13:56 | XMS_ITS | Clinical Summary ---
Author Organization [facility] Address [address], [place] [address] Care Team Providers Care Zoo Veterinarian Name Role Phone Cornelia Larkin PA-C Primary Care Provider [phone] Source Comments You are receiving this document as you are listed as the primary care provider,follow-up provider, or the patient has been referred to you for consultation.This is in compliance with the Medicare and[facility] EHR Incentive Program,which states Providers who transition their patient to another setting of careor provider of care or refers their patient to another provider of care shouldprovide summary care record for each transition of care or referral. [facility] [employer] Allergies Active Allergy Reactions Criticality Noted Date Comments Nsaids Other, see comments 12/04/2018 H/o gastric sleeve Medications Medication Sig Dispensed Refills Start Date End Date Status fluticasone propionate (FLONASE) 50 MCG/ACT nasal solution 1 [place] by Nasal route. Active venlafaxine (EFFEXORXR) 75 [...] Mos) 11/21/2018 Influenza IIV4 (Quadrivalent ) 0.5mL (75335) 11/30/2021,12/05/2019,11/21/2018, 017,11/30/2014,11/03/2013 Pfizer Monovalent 12+ Purple Top [...] Comments Hep C Screening (Preventive Services) 1983 Mammogram 1983 HepB (1) 2002 COVID-19 Vaccine ( season) 2022 01/10/2021, 06/12/2020, 05/22/2020 Adult Preventive Visit 10/15/2022 10/15/2020, 2018 Influenza (#1) 2023 11/30/2021, 11/13, 11/21/2018, Additional history exists DTaP/Tdap/Td (5 - Tdap) 06/12/2025 06/13/19 16, [...] PM CDT) Case Report Pap ? Case: [id number] ? Authorizing Provider: ??Kirke, Jennifer L, DNP, SANITATION TRUCK CLEANER, ??Collected: ? 10/15/2020 1327 ? BAKED AND GRAPHITE INSPECTOR ? Ordering Location: ? [facility] ??Received: ?10/15/2020 1420 ? Practice ? First Screen: ?Naeem, Gisele N, CT (ASCP) ? Specimen: ?Pap Test, Routine, Cervix/Endocervix ? 10/27/2020 7:59 AM [facility] Pap Specimen Adequacy Satisfactory for evaluation, endocervical/reynaga sformation zone component absent. 10/27/2020 7:59 AM [facility] Pap Interpretation Negative for intraepithelial lesion or malignancy (NILM). 10/27/2020 7:59 AM [facility] Pap Disclaimer The Pap test is a screening test designed to aid in the detection of cervical cancer and its precursor lesions. It is not a diagnostic procedure and should not be used as the sole means of detecting cervical cancer. Both false-positive and false-negative results may occur. 10/27/2020 7:59 AM [facility] Gross Description The specimen is received in SurePath fixative and properly labeled. 1 Pap-stained SurePath slide is prepared. 10/27/2020 7:59 AM [facility] Embedded Images 7:59 AM [facility] Other Specimen Type ENTIRE ENDOCERVIX / Unknown 10/15/2020 1:27 PM CDT 10/15/2020 2:20 PM CDT Comment:LMP: No LMP recorded . Jennifer Johnson DNP, SANITATION TRUCK CLEANER, BAKED AND GRAPHITE INSPECTOR LAB PATHOLOG Y Performing Organization Address City/State/[facility] Co de Phone Number [address] [address], [facility] [phone] from Last 3 Months or Most Recently Relevant to Health Maintenance Care Teams Zoo Veterinarian Relationship Specialty Start Date End Date Cornelia Larkin PA-C [address] [place] [address] PCP - General Physician Supervisor [employer] 04/06/22
== END 2023-09-14 13:55 | disposition home or self-care (01) ==
PROVIDERS: Visit Provider Obstetrics & Gynecology
DX: R61 Generalized hyperhidrosis (principal); N89.8 Other specified noninflammatory disorders of vagina
CPT/HCPCS: 82670; 83001; 84443

== ENCOUNTER 2024-07-08 18:51 | Emergency (ER) | payer BC, SELFPAY ==
[2024-07-08] VITALS (15 sets, daily range): BP systolic 108–137; BP diastolic 73–84; PULSE 72–95; RESP 4–19; TEMP 36.5; O2SAT 96–100; BMI 36.0
--- OUTSIDE RECORDS SUMMARY | 2024-07-08 18:53 | XMS_ITS | Clinical Summary ---
Author Organization [facility] Address [address] [address] Care Team Providers Care Network Support Analyst Name Role Phone Hugh Gracia MD Primary Care Provider [phone] Source Comments You are receiving this document as you are listed as the primary care provider,follow-up provider, or the patient has been referred to you for consultation.This is in compliance with the Medicare andWhite Hospital[employer]id EHR Incentive Program,which states Providers who transition their patient to another setting of careor provider of care or refers their patient to another provider of care shouldprovide summary care record for each transition of care or referral. [facility] Allergies Active Allergy Reactions Criticality Noted Date Comments Nsaids Other, see comments 12/04/2018 H/o gastric sleeve Medications fluticasone propionate (FLONASE) 50 MCG/ACT nasal solution 1 Lynn by Nasal route. Active venlafaxine (EFFEXORXR) 150 MG 24 hour release capsuleIndicati ons:Moderate episode of recurrent major depressive disorder (HRC),Anxiety (HRC) Take 1 Capsule (150 mg) by mouth daily. 90 Capsule 3 12/18/2023 5 Active Active Problems Problem Noted Date Diagnosed Date Attention deficit hyperactiv ity disorder (ADHD), predominantly inattentive type 05/04/2022 Anxiety 05/04/2022 H/O gastric sleeve 12/04/2018 Overview (12/04/2018): S/p gastric sleeve, lost approximately 110 lbs Depression 12/04/2018 Pre-eclampsia 12/04/2018 Overview (12/04/2018): Borderline pre-eclampsia with first Encounters Date Type Department Care Team Description 04/21/2024 Results Follow-Up Endoscopy at [facility] [place] [address] [place] [address]. [place] [address] Robin Johnson MD from Last 3 Months Immunizations Immunization Administration Dates Next Due Flu Vac (3+ yrs) 11/26/2012,10/27/2009 Flu Vac Preserv Free (3+yrs) 12/08/2011,11/24/19 11 Fluzone Qiv Multidose Vial 0 .25 (6-35 Mos) 11/21/2018 Influenza (Flucelvax), Prese rv Free QIV 01/01/2023 Influenza IIV4 (Quadrivalent ) 0.5mL (29411) 11/30/2021,12/05/2019,11/21/2018,2016,11/30/2014,11/03/2013 Moderna COVID-19 12+ 01/01/2023 Pfizer Monovalent 12+ Purple Top 01/10/2021,05/0 02/2020,05/22/2020 Pfizer Monovalent 6m-4 Yrs 01/10/2021,06/12/2020 ,05/22/2020 Tdap 06/13/2015, 6,10/23/2013,2010 Family History Medical History Relation Name Comments [...] Smoking Tobacco: Former Cigarettes 1 9.5 1 03/15/1995 - 06/2005 Smokeless Tobacco: Former Tobacco Cessation:Counseling Given: Not Answered Alcohol Use Standard Drinks/Week Comments Not Currently 0 (1 standard drink = 0.6 oz pur e alcohol) PHQ-2 Answer Date Recorded PHQ-2 Score 3 04/02/2024 Comments No Sex and Gender Information Value Date Recorded Sex Assigned at Female 10/13/2020 10:30 AM CDT Legal Sex Female 9:36 AM CDT Gender Identity Female 10/13/2020 10:30 AM CDT Sexual Orientation Not on file Last Filed Vital Signs Vital Sign Reading Time Taken Comments Blood Pressure 108/59 04/07/2024 3:35 PM EXTERNAL AUDITOR Pulse 79 04/07/2024 3:35 PM EXTERNAL AUDITOR Temperature 36.8 C (98.2 F) 04/27/2021 9:46 AM CDT pt reported Respiratory Rate 16 04/07/2024 3:35 PM EXTERNAL AUDITOR Oxygen Saturation 97% 04/07/2024 3:35 PM EXTERNAL AUDITOR Inhaled Oxygen Concentration - - Weight 95.3 kg (210 lb) 04/07/2024 2:28 PM EXTERNAL AUDITOR Height 170.2 cm (5' 7) 04/07/2024 2:28 PM EXTERNAL AUDITOR Body Mass Index 32.89 04/07/2024 2:28 PM EXTERNAL AUDITOR Plan of Treatment Health Maintenance Due Date Last Done Comments Diabetes Screening- (based on age and BMI) 1985 Hep C Screening (Preventive Services) 1985 Mammogram 1985 HepB Vaccine (1) 2002 Adult Preventive Visit 10/15/2022 10/15/2020, 2018 COVID-19 Vaccine ( season) 2023 01/01/2023, 01/10/2021, 01/10/2021, Additional history exists Influenza Vaccine (Season Ended) 2024 01/01/2023, 11/30/2021, 12/05/2019, Additional history exists DTaP/Tdap/Td Vaccine (5 - Tdap) 06/12/2025 06/13/2015, 05/20/2015, 10/23/2013, Additional history exists Cervical Cancer Screening 10/15/20252020, 10/15/2020, 11/12/2016 (Completed), Additional history exists Zoster/Shingles Vaccine (1 of 2) 2033 Colonoscopy 04/07/2034 04/07/2024 HIV Screening (Preventive Services) Completed 01/13/2016 (Completed) HPV Vaccine Aged Out No longer eligi ble based on patient's age to complete this topic HepA Vaccine Aged Out No longer eligi ble based on patient's age to complete this topic Hib Vaccine Aged Out No longer eligi ble based on patient's age to complete this topic IPV (Polio) Vaccine Aged Out No longe r eligible based on patient's age to complete this topic MCV4 Vaccine Aged Out No longer eligi ble based on patient's age to complete this topic Meningococcal B Vaccine Aged Out No l onger eligible based on patient's age to complete this topic Pneumococcal Vaccine Aged Out No long er eligible based on patient's age to complete this topic Procedures Procedure Name Priority Date/Time Associated Diagnosis Comments COLONOSCOPY DIAGNOSTIC Routine 04/07/2024 2:34 PM EXTERNAL AUDITOR Chronic abdominal pain CYTOLOGY (PAP) Routine 10/15/2020 1:27 PM CDT Screening for malignant neoplasm of cervix from Last 3 Months or Most Recently Relevant to Health Maintenance Results * Colonoscopy Diagnostic (04/07/2024 2:34 PM EXTERNAL AUDITOR) Anatomical Region Laterality Modality Other 04/07/2024 2:34 PM EXTERNAL AUDITOR Narrative 04/07/2024 2:34 PM EXTERNAL AUDITOR Patient Name: Tamar Ambrosio Procedure Date: 04/07/2024 2:34 PM Date of : 1985 Admit Type: Outpatient Age: 39 Note Status: Finalized Attending MD: Robin Johnson MD, Procedure: Colonoscopy Indications: Abdominal pain, Chronic diarrhea Providers: Robin Johnson MD, Shelia Jarquin RN Referring MD: Gisele Marte Medicines: Midazolam 5 mg IV, Fentanyl 150 micrograms IV Complications: No immediate complications. Procedure: Pre-Anesthesia Assessment: - The risks and benefits of the procedure and the sedation options and risks were discussed with the patient. All questions were answered and informed consent was obtained. After I obtained informed consent, the scope was passed under direct vision. Throughout the procedure, the patient's blood pressure, pulse, and oxygen saturations were monitored continuously. The [id number] was introduced through the anus and advanced to the terminal ileum, with identification of the appendiceal orifice and IC valve. The colonoscopy was performed without difficulty. The patient tolerated the procedure well. The quality of the bowel preparation was excellent. Findings: A 3 mm polyp was found in the transverse colon. The polyp was sessile. The polyp was removed with a cold snare. Resection and retrieval were complete. The exam was otherwise without abnormality on direct and retroflexion views. Perhaps some mild erythema in the rectosigmoid colon. The terminal ileum appeared normal. Biopsies for histology were taken with a cold forceps from the rectosigmoid colon for evaluation of microscopic colitis. Moderate Sedation: Moderate (conscious) sedation was administered by the nurse and supervised by the endoscopist. The following parameters were monitored: oxygen saturation, heart rate, blood pressure, and response to care. Total physician intraservice time was 18 minutes. This time is the duration from the initial medication administration until the marine service operator assists with initial maneuvers (biopsy / polypectomy / etc.), or if no maneuvers are performed, until the endoscopist leaves the room. Impression: - One 3 mm polyp in the transverse colon, removed with a cold snare. Resected and retrieved. - The examination was otherwise normal on direct and retroflexion views. - The examined portion of the ileum was normal. - Biopsies were taken with a cold forceps from the rectosigmoid colon for evaluation of microscopic colitis. Recommendation: - Await pathology results. - Repeat colonoscopy in 5-10 years for surveillance based on pathology results. Procedure Code(s): --- Professional --- 43285, Colonoscopy, flexible; with removal of tumor(s), polyp(s), or other lesion(s) by snare technique 50798, 59, Colonoscopy, flexible; with biopsy, single or multiple G0500, Moderate sedation services provided by the same physician or other qualified health live in caregiver performing a gastrointestinal endoscopic service that sedation supports, requiring the presence of an independent trained observer to assist in the monitoring of the patient's level of consciousness and physiological status; initial 15 minutes of intra-service time; patient age 5 years or older (additional time may be reported with 49788, as appropriate) Diagnosis Code(s): --- Professional --- D12.3, Benign neoplasm of transverse colon (hepatic flexure or splenic flexure) R10.9, Unspecified abdominal pain K52.9, Noninfective gastroenteritis and colitis, unspecified CPT copyright 2022 [employer]. All rights reserved. The codes documented in this report are preliminary and upon floor layer helper review may be revised to meet current compliance requirements. Robin Johnson MD 04/07/2024 3:19:20 PM Number of Addenda: 0 Note Initiated On: 04/07/2024 2:34 PM Endoscopy Report Procedure Note Robin Johnson MD - 04/07/2024 Patient Name: Tamar Ambrosio Procedure Date: 04/07/2024 2:34 PM Date of : 1985 Admit Type: Outpatient Age: 39 Note Status: Finalized Attending MD: Robin Johnson MD, Procedure: Colonoscopy Indications: Abdominal pain, Chronic diarrhea Providers: Robin Johnson MD, Shelia Jarquin, [place] Referring MD: Gisele Marte Medicines: Midazolam 5 mg IV, Fentanyl 150 micrograms IV Complications: No immediate complications. Procedure: Pre-Anesthesia Assessment: - The risks and benefits of the procedure and the sedation options and risks were discussed with the patient. All questions were answered and informed consent was obtained. After I obtained informed consent, the scope was passed under direct vision. Throughout the procedure, the patient's blood pressure, pulse, and oxygen saturations were monitored continuously. The [id number] was introduced through the anus and advanced to the terminal ileum, with identification of the appendiceal orifice and IC valve. The colonoscopy was performed without difficulty. The patient tolerated the procedure well. The quality of the bowel preparation was excellent. Findings: A 3 mm polyp was found in the transverse colon. The polyp was sessile. The polyp was removed with a cold snare. Resection and retrieval were complete. The exam was otherwise without abnormality on direct and retroflexion views. Perhaps some mild erythema in the rectosigmoid colon. The terminal ileum appeared normal. Biopsies for histology were taken with a cold forceps from the rectosigmoid colon for evaluation of microscopic colitis. Moderate Sedation: Moderate (conscious) sedation was administered by the nurse and supervised by the endoscopist. The following parameters were monitored: oxygen saturation, heart rate, blood pressure, and response to care. Total physician intraservice time was 18 minutes. This time is the duration from the initial medication administration until the marine service operator assists with initial maneuvers (biopsy / polypectomy / etc.), or if no maneuvers are performed, until the endoscopist leaves the room. Impression: - One 3 mm polyp in the transverse colon, removed with a cold snare. Resected and retrieved. - The examination was otherwise normal on direct and retroflexion views. - The examined portion of the ileum was normal. - Biopsies were taken with a cold forceps from the rectosigmoid colon for evaluation of microscopic colitis. Recommendation: - Await pathology results. - Repeat colonoscopy in 5-10 years for surveillance based on pathology results. Procedure Code(s): --- Professional --- 73710, Colonoscopy, flexible; with removal of tumor(s), polyp(s), or other lesion(s) by snare technique 05510, 59, Colonoscopy, flexible; with biopsy, single or multiple G0500, Moderate sedation services provided by the same physician or other qualified health live in caregiver performing a gastrointestinal endoscopic service that sedation supports, requiring the presence of an independent trained observer to assist in the monitoring of the patient's level of consciousness and physiological status; initial 15 minutes of intra-service time; patient age 5 years or older (additional time may be reported with 02626, as appropriate) Diagnosis Code(s): --- Professional --- D12.3, Benign neoplasm of transverse colon (hepatic flexure or splenic flexure) R10.9, Unspecified abdominal pain K52.9, Noninfective gastroenteritis and colitis, unspecified CPT copyright 2022 [employer]. All rights reserved. The codes documented in this report are preliminary and upon floor layer helper review may be revised to meet current compliance requirements. Robin Johnson MD 04/07/2024 3:19:20 PM Number of Addenda: 0 Note Initiated On: 04/07/2024 2:34 PM Endoscopy Report us Gisele Marte PA-C ET GI PROCEDURE ORDERABLES F inal Result * PAP Test (10/15/2020 1:27 PM CDT) Case Report Pap Case: [id number] Authorizing Provider: Jennifer Johnson, MIREILLE, CURTAIN WORKER, Collected: 10/15/2020 1327 MORPHOLOGY TEACHER Ordering Location: [facility] Received: 10/15/2020 1420 Practice First Screen: Gisele Hartley CT (ASCP) Specimen: Pap Test, Routine, Cervix/Endocervix 10/27/2020 7:59 AM [facility] Pap Specimen Adequacy Satisfactory for evaluation, endocervical/reynaga sformation zone component absent. 10/27/2020 7:59 AM [facility] Pap Interpretation Negative for intraepithelial lesion or malignancy (NILM). 10/27/2020 7:59 AM [facility] at 0759 CDT Pap Disclaimer The Pap test is a screening test designed to aid in the detection of cervical cancer and its precursor lesions. It is not a diagnostic procedure and should not be used as the sole means of detecting cervical cancer. Both false-positive and false-negative results may occur. 10/27/2020 7:59 AM [facility] Gross Description The specimen is received in SurePath fixative and properly labeled. 1 Pap-stained SurePath slide is prepared. 10/27/2020 7:59 AM [facility] Embedded Images 7:59 AM [facility] Other Specimen Type ENTIRE ENDOCERVIX / Unknown 10/15/2020 1:27 PM CDT 10/15/2020 2:20 PM CDT Comment:LMP: No LMP recorded . us Jennifer Johnson DNP, CURTAIN WORKER, MORPHOLOGY TEACHER LAB PATHOLOGY [place] vail Result Performing Organization Address [facility] de Phone Number [address] [phone] from Last 3 Months or Most Recently Relevant to Health Maintenance Insurance [facility] Care Teams Network Support Analyst Relationship Specialty [place] [address] [place] [address] PCP - General 04/14/24
--- OUTSIDE RECORDS SUMMARY | 2024-07-08 18:53 | XMS_ITS | Encounter Summary ---
Author Organization [facility] Address [address] [place] [address] Care Team Providers Care Third Helper Name Role Phone Hugh Gracia MD Primary Care Provider [phone] Reason for Referral * Procedure/Equipment (Routine) - New Request Specialty Diagnoses / Procedures Referred By Connie choi Referred To Contact Diagnoses Chronic abdominal pain Procedures Colonoscopy Diagnostic Gisele Marte PA-C [address] [place] [address] Phone: tel: fax: Referral ID Status Reason Start Date Expiration Date V isits Requested Visits Authorized [id number] New Request 06/01/2024 04/03/2026 1 1 WORKER HEAD Encounter Details Date Type Department Care Team (Late st Contact Info) Description 04/03/2024 Results Follow-Up [facility] [address] [place] [id number] Marizol Mercado PA-C [address] [place] [address] Social History Tobacco Use Types Packs/Day Years Used Date Smoking Tobacco: Former Cigarettes 1 9.5 1 03/15/1995 - 06/2005 Smokeless Tobacco: Former Alcohol Use [...] AM CDT Sexual Orientation Not on file documented as of this encounter Plan of Treatment Not on file documented as of this encounter Results * Colonoscopy Diagnostic (04/07/2024 2:34 PM LOFT WORKER HEAD) Anatomical Region Laterality Modality Other 04/07/2024 2:34 PM LOFT WORKER HEAD Narrative 04/07/2024 2:34 PM LOFT WORKER HEAD Patient Name: Tamar Ambrosio Procedure Date: 04/07/2024 [...] and oxygen saturations were monitored continuously. The [id number] was introduced through the anus and advanced [...] from the initial medication administration until the ict trainer assists with initial maneuvers (biopsy / polypectomy [...] pathology results. Procedure Code(s): --- Professional --- 86466, Colonoscopy, flexible; with removal of tumor(s), polyp(s), or other lesion(s) by snare technique 55878, 59, Colonoscopy, flexible; with biopsy, single or multiple G0500, Moderate sedation services provided by the same physician or other qualified health health care sanitary technician performing a gastrointestinal endoscopic service that sedation supports, requiring the presence of an independent trained observer to assist in the monitoring of the patient's level of consciousness and physiological status; initial 15 minutes of intra-service time; patient age 5 years or older (additional time may be reported with 98361, as appropriate) Diagnosis Code(s): --- Professional --- D12.3, Benign neoplasm of transverse colon (hepatic flexure or splenic flexure) R10.9, Unspecified abdominal pain K52.9, Noninfective gastroenteritis and colitis, unspecified CPT copyright 3 [employer]. All rights reserved. The codes documented in this report are preliminary and upon marine tower operator review may be revised to meet current [...] and oxygen saturations were monitored continuously. The [id number] was introduced through the anus and advanced [...] from the initial medication administration until the ict trainer assists with initial maneuvers (biopsy / polypectomy [...] pathology results. Procedure Code(s): --- Professional --- 74937, Colonoscopy, flexible; with removal of tumor(s), polyp(s), or other lesion(s) by snare technique 67059, 59, Colonoscopy, flexible; with biopsy, single or multiple G0500, Moderate sedation services provided by the same physician or other qualified health health care sanitary technician performing a gastrointestinal endoscopic service that sedation supports, requiring the presence of an independent trained observer to assist in the monitoring of the patient's level of consciousness and physiological status; initial 15 minutes of intra-service time; patient age 5 years or older (additional time may be reported with 81508, as appropriate) Diagnosis Code(s): --- Professional --- D12.3, Benign neoplasm of transverse colon (hepatic flexure or splenic flexure) R10.9, Unspecified abdominal pain K52.9, Noninfective gastroenteritis and colitis, unspecified CPT copyright 2022 [employer]. All rights reserved. The codes documented in this report are preliminary and upon marine tower operator review may be revised to meet current compliance requirements. Robin Johnson MD 04/07/2024 3:19:20 PM Number of Addenda: 0 Note Initiated On: 04/07/2024 2:34 PM Endoscopy Report Gisele Marte PA-C ET GI PROCEDURE ORDERABLES F inal Result documented in this encounter Visit Diagnoses Diagnosis Chronic abdominal pain- Primary Abdominal pain, unspecified site Chronic abdominal pain Abdominal pain, unspecified site documented in this encounter Care Teams Third Helper Relationship Specialty [place] [address] [place] [address] PCP - General 04/14/24 documented as of this encounter
--- OUTSIDE RECORDS SUMMARY | 2024-07-08 18:53 | XMS_ITS | Encounter Summary ---
Author Organization [facility] Address [address] [address] Care Team Providers Care Junior Account Manager Name Role Phone Hugh Gracia MD Primary Care Provider [phone] Encounter Details Date Type Department Care Team (Late st Contact Info) Description 04/21/2024 Results Follow-Up Endoscopy at [facility] at [address] [place], [place] [address] Robin Johnson MD [address] [place] [id number] Social History Tobacco Use Types Packs/Day Years [...] on file documented as of this encounter Visit Diagnoses Not on filedocumented in this encounter Care Teams Junior Account Manager Relationship Specialty [place] [address] [place] [address] PCP - General 04/14/24 documented as of this encounter
--- OUTSIDE RECORDS SUMMARY | 2024-07-08 18:54 | XMS_ITS | Clinical Summary ---
Author Organization [place] Address [address] [place] [id number] Care Team Providers Care Police Officer Name Role Phone No Ref-Primary, Physician Primary Care Provider Allergies Active Allergy Reactions Criticality Noted Date Comments Nsaids Other (See Comments) 12/04/2018 H/o gastric sleeve Medications sertraline (ZOLOFT) 100 MG tablet Take 0.5 tablets by mouth every other day 01/19/2020 Active oxyCODONE-aceta minophen (PERCOCET) 5-325 MG tablet TAKE 1 TO 2 TABLETS BY MOUTH EVERY 4 TO 6 HOURS NEEDED FOR PAIN. MAX 6 TABLETS PER DAY 05/11/2021 Active cyclobenzaprine (FLEXERIL) 5 MG tablet TAKE 1 TO 2 TABLETS BY MOUTH EVERY 8 HOURS NEEDED 05/11/2021 Active cephALEXin (KEFLEX) 500 MG capsule TAKE 1 CAPSULE BY MOUTH THREE TIMES DAILY FOR 7 DAYS 05/11/2021 Active amoxicillin-cla vulanate (AUGMENTIN) 875-125 MG tablet TAKE 1 TABLET BY MOUTH TWICE DAILY FOR 7 DAYS 03/24/2021 Active Active Problems No known active problems Immunizations Immunization Administration Dates Next Due COVID-19 MONOVALENT 12+ (Pfizer) 01/10/2021,05/0 02/2020,05/22/2020 Influenza Vaccine >6 months,quad, PF 12/05/2019, 11/21/2018 TDAP (Adacel,Boostrix) 06/13/2015 Family History Medical History Relation Comments Hyperlipidemia Father Relation Status Comments Father Social History Tobacco Use Types Packs/Day Years Used Date Smoking Tobacco: Former Cigarettes 1 5 Smokeless Tobacco: Never Alcohol Use Standard Drinks/Week Comments Not Currently 0 (1 standard drink = 0.6 oz pur e alcohol) PHQ-2 Answer Date Recorded PHQ-2 Score 2 05/20/2021 Adolescent Education Answer Date Record ed Getting School Help Needed Not on file 11/04 Comments No Sex and Gender Information Value Date Recorded Sex Assigned at Female 12/21/2020 9:11 AM HVAC TECH Legal Sex Female 3:50 PM CDT Gender Identity Female 12/21/2020 9:11 AM HVAC TECH Sexual Orientation Straight 12/21/2020 9: 11 AM HVAC TECH Last Filed Vital Signs Vital Sign Reading Time Taken Comments Blood Pressure 118/78 05/20/2021 10:08 AM CDT Pulse 88 05/20/2021 10:08 AM CDT Temperature - - Respiratory Rate 18 05/20/2021 10:08 AM CDT Oxygen Saturation 99% 05/20/2021 10:08 AM CDT Inhaled Oxygen Concentration - - Weight 89.4 kg (197 lb) 05/20/2021 10:08 AM CDT Height 169 cm (5' 6.54) 05/20/2021 10:08 AM CDT Body Mass Index 31.29 05/20/2021 10:08 AM CDT Plan of Treatment Health Maintenance Due Date Last Done Comments ADVANCE CARE PLANNING 1983 DIABETES SCREENING 1983 MAMMO SCREENING 1983 YEARLY PREVENTIVE VISIT 1986 HEPATITIS B VACCINE (1 of 3 - 19+ 3-dose series) 2002 ANNUAL REVIEW OF HM ORDERS 05/20/2022 05/20/2021 LIPID 2023 COVID-19 VACCINE ( season) 2023 01/10/2021, 06/12/2020, 05/22/2020 PAP 10/16/2023 10/15/2020, 09/0 04/2020, 10/15/2020, Additional history exists PHQ-2 (once per calendar year) 2024 05/20/2021 INFLUENZA VACCINE (Season Ended) 2024 12/05/2019, 11/21/2018 DTAP/TDAP/TD VACCINE (2 - Td or Tdap) 06/12/2025 06/13/2015 ZOSTER VACCINE (1 of 2) 2033 HEPATITIS C SCREENING Discontinued HIV SCREENING Discontinued HPV VACCINE Aged Out No longer eligi ble based on patient's age to complete this topic MENINGITIS VACCINE Aged Out No longer eligible based on patient's age to complete this topic PNEUMOCOCCAL VACCINE: PEDIATRICS (0 to 5 YEARS) AND AT-RISK PATIENTS (6 to 49 YEARS) Aged Out No longer eligible based on patient's age to complete this topic Procedures Procedure Name Priority Date/Time Associated Diagnosis Comments ABSTRACT PAP (HIM EXTERNAL RESULT) Routine 10/15/2020 1:27 PM CDT from Last 3 Months or Most Recently Relevant to Health Maintenance Results * Abstract PAP (HIM External Result) (10/15/2020 1:27 PM CDT) PAP-ABSTRACT See Scanned Document [facility] 10/15/2020 1:27 PM CDT Narrative [facility] - 10/15/2020 1:27 PM CDT Abstract pap and HPV 10/15/2020 CareEverywhere. Zheng Elias MD [facility] SEE CARE EVERYWHERE [facility] us Provider Outside LAB - HIM EXTERNAL RESULT Final Result [id number] [place] [address] from Last 3 Months or Most Recently Relevant to Health Maintenance Insurance [place] [id number] Care Teams Police Officer Relationship Specialty Start Date End Date No Ref-Primary, Physician PCP - General 01/10/21
--- NOTE | 2024-07-08 19:31 | CRLHL7_ITS ---
For Patients: As a result of the Century Cures Act, medical imaging exams and procedure reports are released immediately into your electronic medical record. You may view this report before your referring provider. If you have questions, please contact your health care provider. INDICATION: Chest pain. TECHNIQUE: Chest 2 views. COMPARISON: None. FINDINGS: Cardiovascular and mediastinum: Heart size is normal. Unremarkable mediastinum. Lungs and pleural spaces: Lungs are clear. No sign of infiltrate or mass. No sign of pleural effusion. No pneumothorax. Bones and soft tissues: No significant findings. IMPRESSION: No acute or significant findings. Dictated by Josep Blake MD @ 07/08/2024 9:02:54 PM (Electronically Signed)
--- NOTE | 2024-07-08 19:32 | ED.CHESTPAIN ---
HPI - Chest Pain General Date Seen: 07/08/24 Chief Complaint: Chest Pain Stated Complaint: high blood pressure, chest pain Time Seen by Provider: 07/08/24 18:54 Source: patient Mode of arrival: ambulatory Limitations: no limitations History of Present Illness HPI narrative: Patient is a 39-year-old female presenting to the emergency department for chest pain. She states she was checking her blood pressure because she has had ketamine infusions for treatment resistant depression. She is post check her blood pressure before each time she takes a dose. She was using a wrist blood pressure cuff and noticeable slightly elevated 138 systolic. She was concerned so she rechecked it multiple times. It was getting higher and got as high as 218/126. She was concerned about this and then started becoming very anxious. After that she started noticing some chest pain on the left side of her chest radiating to her shoulder. Describes it as a dull pain has also been having a slight headache. When she arrived to the emergency department her blood pressures reach checked and was greatly improved. After this her chest pain has improved significantly she states. She thinks it was all anxiety related now. Denies high cholesterol, diabetes, hypertension. No other medical issues. No history of DVTs. No recent surgeries. Denies hemoptysis, lower extremity swelling, history of DVT, unilateral leg swelling, hormone use. Denies ever having pain like this before. No other concerns noted no associated shortness of breath, lightheadedness, dizziness. Denies abdominal pain, diarrhea, constipation, fevers, chills, vision changes, weakness, numbness. Related Data Home Medications ?Medication ?Instructions ?Recorded ?Confirmed venlafaxine 75 mg capsule,extended 150 mg PO DAILY 05/29/24 07/08/24 release 24 hr fluticasone propionate 50 2 spray intranasal DAILY PRN 07/08/24 07/08/24 mcg/actuation nasal spray,suspension (Flonase Allergy Relief) Allergies Allergy/AdvReac Type Severity Reaction Status Date / Time NSAIDS (Non-Steroidal AdvReac Verified 07/08/24 19:02 Anti-Inflamma Review of Systems Status of ROS Reports: 10 or more systems reviewed and unremarkable except as noted in History and below [facility] Medical History Endometriosis ?N80.9 - Endometriosis, unspecified (ICD-10) Pre-eclampsia (12/04/18) ?O14.90 - Unspecified pre-eclampsia, unspecified trimester (ICD-10) Dysmenorrhea ?N94.6 - Dysmenorrhea, unspecified (ICD-10) Abnormal uterine bleeding ?N93.9 - Abnormal uterine and vaginal bleeding, unspecified (ICD-10) Surgical History H/O gastric bypass (12/04/18) ?Z98.84 - Bariatric surgery status (ICD-10) History of hysterectomy for benign disease ?Z90.710 - Acquired absence of both cervix and uterus (ICD-10) History of appendectomy ?Z90.49 - Acquired absence of other specified parts of digestive tract (ICD-10) History of tonsillectomy ?Z90.89 - Acquired absence of other organs (ICD-10) History of abdominoplasty ?Z98.890 - Other specified postprocedural states (ICD-10) History of ?Z98.891 - History of uterine scar from previous surgery (ICD-10) H/O gastric sleeve ?Z90.3 - Acquired absence of stomach [part of] (ICD-10) Family History Grandmother Uterine cancer Social History Narrative: complex manager. . Non-smoker, no alcohol use What is your current living situation?: I presently have a place to live Problems where you live: no known problems In the past 12 months, utilities in danger of being shut off: no In past 12 months, lack of transportation kept you from medical appts, meetings, work, or getting things needed for daily living: no In the past 12 mos, have been you worried that your food would run out before you had money to buy more?: never true In the past 12 mos, the food you bought just didn't last and you didn't have money to buy more?: never true Highest level of school completed/degree received: Bachelor's degree Smoking Status: Never smoker Do you use any of these nicotine containing products: None Second hand tobacco smoke exposure: No How often do you have a drink containing alcohol: never How often do you have six or more drinks on one occasion: Never AUDIT-C Alcohol total score: 0 Non-prescribed substance use: marijuana (any form) Non-prescribed substance use details: gummies daily Caffeine: Yes (2 caffeinated drinks daily) How often does anyone, including family, friends and others, physically hurt you: never How often does anyone, including family, friends and others, insult or talk down to you: never How often does anyone, including family, friends and others, threaten you with harm: never How often does anyone, including family, friends and others, scream or curse at you: never service: No Exam Narrative Exam Narrative: Const: Well-nourished, Well-developed, in no distress Eyes: PERRL, no conjunctival injection, and symmetrical lids HENT: Atraumatic external nose and ears. Moist mucous membranes. Neck: Symmetric, trachea midline, No thyromegaly. CVS: RRR, No murmurs or gallops. Peripheral pulses 2+ and equal in all extremities RESP: Unlabored respiratory effort. Clear to auscultation bilaterally. GI: Nontender/Nondistended, No rebound or guarding. MSK:Extremities w/o deformity, Normal Active ROM Skin: Warm, Dry. No rashes or lesions. Neuro: Normal Muscle tone, No focal neurological deficits. Psych: Awake, Alert, & Oriented x3. Appropriate mood and affect. Const Vital Signs, click to edit/add: Vital Signs - 24 hr 07/08/24 18:55 07/08/24 19:10 07/08/24 19:11 Temperature 97.7 F Pulse Rate 83 80 Pulse Rate [Pulse Oximeter] 79 Respiratory Rate 18 Blood Pressure 135/79 Blood Pressure [Right Upper Arm] 108/73 Pulse Oximetry 98 96 96 Oxygen Delivery Method Room Air 07/08/24 19:15 07/08/24 19:17 07/08/24 19:18 Temperature Pulse Rate 76 79 77 Pulse Rate [Pulse Oximeter] Respiratory Rate 16 18 19 Blood Pressure 128/79 Blood Pressure [Right Upper Arm] Pulse Oximetry 98 98 98 Oxygen Delivery Method 07/08/24 19:30 07/08/24 19:31 07/08/24 19:47 Temperature Pulse Rate 91 82 95 Pulse Rate [Pulse Oximeter] Respiratory Rate 18 16 Blood Pressure 128/83 Blood Pressure [Right Upper Arm] Pulse Oximetry 99 100 97 Oxygen Delivery Method 07/08/24 19:48 07/08/24 20:00 07/08/24 20:01 Temperature Pulse Rate 80 78 72 Pulse Rate [Pulse Oximeter] Respiratory Rate 18 18 18 Blood Pressure 137/84 129/79 Blood Pressure [Right Upper Arm] Pulse Oximetry 97 97 98 Oxygen Delivery Method 07/08/24 20:15 07/08/24 20:16 07/08/24 20:17 Temperature Pulse Rate 78 74 74 Pulse Rate [Pulse Oximeter] Respiratory Rate 13 4 L Blood Pressure 131/83 Blood Pressure [Right Upper Arm] Pulse Oximetry 98 97 97 Oxygen Delivery Method Course Vital Signs Vital signs: Initial Vital Signs Temperature 97.7 F 07/08/24 18:55 Temperature Source Temporal Artery Scan 07/08/24 18:55 Pulse Rate 79 07/08/24 18:55 Respiratory Rate 18 07/08/24 18:55 Blood Pressure 108/73 07/08/24 18:55 Blood Pressure Mean 84 07/08/24 18:55 Blood Pressure Position Sitting 07/08/24 18:55 Pulse Oximetry 98 07/08/24 18:55 Oxygen Delivery Method Room Air 07/08/24 18:55 Vital Signs Temperature 97.7 F 07/08/24 18:55 Pulse Rate 79 07/08/24 18:55 Respiratory Rate 18 07/08/24 18:55 Blood Pressure 108/73 07/08/24 18:55 Pulse Oximetry 98 07/08/24 18:55 Oxygen Delivery Method Room Air 07/08/24 18:55 Temperature 97.7 F 07/08/24 18:55 Pulse Rate 74 07/08/24 20:17 Respiratory Rate 4 L 07/08/24 20:16 Blood Pressure 131/83 07/08/24 20:16 Pulse Oximetry 97 07/08/24 20:17 Oxygen Delivery Method Room Air 07/08/24 18:55 MDM - Chest Pain MDM Narrative Medical decision making narrative: Patient is a 39-year-old female presenting for chest pain. The differential diagnosis of chest pain is broad and includes common etiologies such as musculoskeletal strain, GERD, pneumonia, etc. More serious etiologies considered include PE, coronary artery disease, pneumothorax, aortic dissection, aortic aneurysm. Will do EKG and troponin to look for signs of coronary artery disease. She is PERC negative and PE can not be ruled out. My concern for dissection and aortic aneurysm is low. Will do chest x-ray to look for signs of pneumonia or pneumothorax. I do believe the symptoms were most likely related to anxiety. Will also order CBC, BMP. EKG shows no acute concerning abnormalities. Lab work returned showing no concerning abnormalities. Chest x-ray reviewed by myself shows no acute concerning findings. I spoke to the patient about the repeat troponin. I explained that since symptoms only started about an hour prior to arrival recommendations are to do a repeat troponin. She states she is now asymptomatic and does believe that the chest pain was related to anxiety. Considering the story I also believe it was related to anxiety but I cannot definitively rule out an SC without the repeat troponin. After long conversation and shared decision-making it was decided to forego the repeat troponin. Patient will be discharged. Lab Data Labs: Lab Results 07/08/24 07/08/24 Range/Units 19:31 19:40 WBC 8.44 (4.50-11.00) K/uL RBC 4.48 (4.00-5.20) m/uL Hgb 12.0 (12.0-16.0) gm/dL Hct 37.8 (33.0-51.0) % MCV 84 (80-100) fL MCH 27 (26-34) pg MCHC 32 (32-36) gm/dL RDW Coeff of Lexus 14.9 (11.5-15.5) % Plt Count 347 (140-440) K/uL Neut % (Auto) 58.2 (42.0-72.0) % Lymph % (Auto) 34.7 (20-44) % [place] % (Auto) 6.6 (0.0-11.0) % Eos % (Auto) 0.2 (0.0-7.0) % Baso % (Auto) 0.2 (0.0-3.0) % Neut # (Auto) 4.90 (1.7-7.0) K/uL Lymph # (Auto) 2.93 H (0.90-2.90) K/uL [place] # (Auto) 0.60 (0.00-0.90) K/UL Eos # (Auto) 0.02 (0.00-0.50) K/uL Baso # (Auto) 0.02 (0.00-0.30) K/uL Abs Immat Gran (auto) 0.01 (0.00-0.30) K/uL Imm/Tot Granulo (auto) 0.1 % Sodium 137 (135-149) mmol/L Potassium 4.1 (3.6-5.1) mmol/L Chloride 101 (96-114) mmol/L Carbon Dioxide 27 (20-32) mmol/L Anion Gap 9 (7-15) mEq/L BUN 17 (5-24) mg/dL Creatinine 0.9 (0.5-1.5) mg/dL Estimated Creat Clear 79.99 Estimated GFR 82 ml/min Glucose 86 (60-115) mg/dL Calcium 9.1 (8.4-10.6) mg/dL POC Troponin I 0.00 L (0.01-0.04) ng/ml ECG Data Attestation: I personally reviewed and interpreted this ECG as follows: Prior ECG tracings: available for review Interpretation: Normal sinus rhythm with a rate of 79 beats per minute, normal interval, normal axis, no ST or T-wave abnormalities. Appears similar to previous EKGs on file. Discharge Plan Discharge Clinical Impression: Atypical chest pain Patient Disposition: Home, Self-Care Condition: Stable Instructions: Noncardiac Chest Pain (ED) Additional Instructions: Return to emergency department for new or worsening symptoms. If chest pain returns return for re-evaluation. As a previously mention to typically is recommended to repeat the troponin to rule out heart attacks but we did a shared decision-making conversation and was decided not to do the repeat troponin as you did not want to wait the couple hours for repeat. Prescriptions: No Action venlafaxine 75 mg capsule,extended release 24hr 150 mg PO DAILY fluticasone propionate [Flonase Allergy Relief] 50 mcg/actuation spray,suspension 2 spray intranasal DAILY PRN Rx Instructions: administer into each nostril Follow Up/Referrals: Vincenzo Mcpherson Provider [Primary Care Provider, Family Practice] Stand Alone Forms: MyHealth Info Instructions
[2024-07-08 19:45] LABS: Basophils Absolute Auto 0.02 K/uL (0.00-0.30); Basophils Percent Auto 0.2 % (0.0-3.0); Eosinophils Absolute Auto 0.02 K/uL (0.00-0.50); Eosinophils Percent Auto 0.2 % (0.0-7.0); Hematocrit 37.8 % (33.0-51.0); Immature Granulocytes Abs Auto 0.01 K/uL (0.00-0.30); Immature Granulocytes Pct Auto 0.1 %; Lymphocytes Absolute Auto 2.93 K/uL (0.90-2.90); Lymphocytes Percent Auto 34.7 % (20-44); Mean Corpuscular HGB Conc 32 gm/dL (32-36); Mean Corpuscular Hemoglobin 27 pg (26-34); Mean Corpuscular Volume 84 fL (80-100); Monocytes Percent Auto 6.6 % (0.0-11.0); Neutrophils Percent Auto 58.2 % (42.0-72.0); Platelet Count* 347 K/uL (140-440); RDW Coefficient of Variation % 14.9 % (11.5-15.5); Red Blood Count 4.48 m/uL (4.00-5.20); White Blood Count* 8.44 K/uL (4.50-11.00)
[2024-07-08 19:52] LABS: Slide Review Reflex No
[2024-07-08 20:09] LABS: Chloride* 101 mmol/L (96-114); Potassium* 4.1 mmol/L (3.6-5.1); Sodium* 137 mmol/L (135-149)
[2024-07-08 20:12] LABS: Anion Gap 9 mEq/L (7-15); Blood Urea Nitrogen* 17 mg/dL (5-24); Carbon Dioxide* 27 mmol/L (20-32); Creatinine* 0.9 mg/dL (0.5-1.5); Est. Creatinine Clearance* 79.99; Estimated Glomerular Filt Rate 82 ml/min
[2024-07-08 20:13] LABS: Calcium* 9.1 mg/dL (8.4-10.6); Glucose* 86 mg/dL (60-115)
== END 2024-07-08 20:55 | disposition home or self-care (01) ==
PROVIDERS: Emergency Provider Student in an Organized Health Care Education/Training Program
DX: R07.9 Chest pain, unspecified (principal)
CPT/HCPCS: 36415; 71046; 80048; 84484; 85025; 99284

== ENCOUNTER 2024-07-28 08:16 | Outpatient (CLI) | payer BC, SELFPAY ==
--- NOTE | 2024-07-28 08:15 | CRLHL7_ITS ---
For Patients: As a result of the Century Cures Act, medical imaging exams and procedure reports are released immediately into your electronic medical record. You may view this report before your referring provider. If you have questions, please contact your health care provider. CLINICAL HISTORY: Left sided pelvic pain x 6 months. COMPARISON: 11/15/2022 TECHNIQUE: 2D krishnan-scale ultrasound. In addition, color Doppler and spectral Doppler analysis was performed of the pelvis using a transabdominal and transvaginal approach. Transvaginal imaging performed to better visualize the endometrial stripe and ovaries. FINDINGS: The uterus is surgically absent. The right ovary measures 2.6 x 2.0 x 1.9 cm in size and the left ovary measures 3.0 x 2.9 x 2.3 cm. The ovaries demonstrate normal arterial and venous blood flow on color Doppler and spectral Doppler analysis. There are no suspicious fluid collections within the cul-de-sac. Simple cyst within the left ovary measures 1.5 x 1.7 x 1.5 cm. IMPRESSION: Simple left ovarian cyst measures 1.7 cm. No excess pelvic free fluid or suspicious ovarian lesion. Dictated by Josep Alfaro MD @ 07/28/2024 10:45:09 AM (Electronically Signed)
== END 2024-07-28 08:17 | disposition home or self-care (01) ==
LOC: US 08:17
PROVIDERS: Visit Provider Registered Nurse
DX: R10.2 Pelvic and perineal pain (principal); N83.292 Other ovarian cyst, left side
CPT/HCPCS: 76830; 76856; 93976

== ENCOUNTER 2024-11-07 09:02 | Outpatient (CLI) | payer BC, SELFPAY ==
--- NOTE | 2024-11-07 09:15 | CRLHL7_ITS ---
For Patients: As a result of the Century Cures Act, medical imaging exams and procedure reports are released immediately into your electronic medical record. You may view this report before your referring provider. If you have questions, please contact your health care provider. BILATERAL DIGITAL SCREENING MAMMOGRAM WITH COMPUTER-AIDED DETECTION AND TOMOSYNTHESIS CLINICAL HISTORY: Routine screening exam. COMPARISON: None. TECHNIQUE: Digital mammogram in CC and MLO projections including computer-aided detection (CAD). Tomosynthesis was used in this interpretation. BREAST COMPOSITION: The breasts are heterogeneously dense, which may obscure small masses. FINDINGS: RIGHT Breast: No suspicious findings. LEFT Breast: Clustered microcalcifications within the lower inner quadrant 3 cm from the nipple. IMPRESSION: LEFT breast calcifications. RECOMMENDATIONS: Spot compression magnification views of the calcifications in the LEFT breast in CC and ML projections. The [facility] will contact the patient. A lay language report of this examination will be provided to the patient. BI-RADS Category 0: Incomplete: Need Additional Imaging Evaluation Dictated by Josep Alfaro MD @ 11/07/2024 9:47:17 AM /Dictated by: Josep Alfaro MD @ 11/07/2024 9:47:00 AM (Electronically Signed)
== END 2024-11-07 09:03 | disposition home or self-care (01) ==
LOC: MAMMO 09:02
PROVIDERS: Visit Provider Registered Nurse
DX: Z12.31 Encounter for screening mammogram for malignant neoplasm of breast (principal); R92.1 Mammographic calcification found on diagnostic imaging of breast
CPT/HCPCS: 77063; 77067

== ENCOUNTER 2024-11-11 08:25 | Outpatient (CLI) | payer BC, SELFPAY ==
--- NOTE | 2024-11-11 08:45 | CRLHL7_ITS ---
For Patients: As a result of the Cures Act, medical imaging exams and procedure reports are released immediately into your electronic medical record. You may view this report before your referring provider. If you have questions, please contact your health care provider. DIGITAL DIAGNOSTIC LEFT MAMMOGRAM USING TOMOSYNTHESIS CLINICAL HISTORY: LEFT breast calcifications. COMPARISON: 11/07/2024. TECHNIQUE: Digital LEFT mammogram in three projections. BREAST COMPOSITION: There are scattered areas of fibroglandular density. FINDINGS: Additional mammogram images LEFT breast submitted. Loosely grouped amorphous calcifications are present in the lower inner quadrant 3 cm from the nipple. No distinct layering. IMPRESSION: Loosely grouped amorphous calcifications in the lower inner quadrant 3 cm from the nipple. RECOMMENDATIONS: Stereotactic biopsy should be considered. A lay language report of this examination will be provided to the patient. BI-RADS Category 4: Suspicious Dictated by Josep Alfaro MD @ 11/11/2024 9:08:54 AM jj/Dictated by: Josep Alfaro MD @ 11/11/2024 9:08:00 AM (Electronically Signed)
== END 2024-11-11 08:26 | disposition home or self-care (01) ==
LOC: MAMMO 08:26
PROVIDERS: Visit Provider Obstetrics & Gynecology
DX: R92.1 Mammographic calcification found on diagnostic imaging of breast (principal)
CPT/HCPCS: 77065; G0279